=== PATIENT | female | born 1955 | race Caucasian/White ===

== ENCOUNTER 2024-09-14 13:22 | Inpatient (IN) | payer MEDICARE ==
[~2024-09-14] VITALS: Ht 162.6 cm; Wt 44.5 kg
[~2024-09-14 13:22] MED LIST: AMLODIPINE BESY10 MG PO; ANORO ELLIPTA1 EACH INH; ATORVASTATIN CA10 MG PO; BACLOFEN10 MG PO; BUPROPION HCL100 MG PO; HYDROCODON-ACE1 EAC9 PO; LOSARTAN POTAS100 MG PO; ONDANSETRON ODT8 MG PO; OXYBUTYNIN CHLOR5 MG PO; PROVENTIL HFA6.7 GM INH; TRAZODONE HCL100 MG PO; ULTRAM 50MG50 MG PO
[2024-09-14 13:45] VITALS: TEMP 98.5
[2024-09-14 14:26] LABS: BASOPHILS # (AUTO) 0.1 (0.0-0.1); EOSINOPHILS # (AUTO) 0.3 (0.0-0.4); EOSINOPHILS % 5.1 % (0.0-6.0); HEMATOCRIT 34.9 % (34.2-44.1); HEMOGLOBIN 11.1 g/dL (12.0-16.0); LYMPHOCYTES # (AUTO) 1.2 (1.0-3.2); LYMPHOCYTES % 19.9 % (18.0-39.1); MEAN CORPUSCULAR HEMOGLOBIN 30.8 pg (28-32); MEAN CORPUSCULAR HGB CONC 31.8 g/dL (31-35); MEAN CORPUSCULAR VOLUME 96.9 fL (81-99); MONOCYTES # (AUTO) 0.5 (0.2-0.8); MONOCYTES % 8.3 % (4.4-11.3); NEUTROPHILS # (AUTO) 3.9 (2.1-6.9); NEUTROPHILS % 65.5 % (38.7-80.0); PLATELET COUNT 210 x10e3/uL (140-360); RED CELL DISTRIBUTION WIDTH 14.1 % (11.7-14.4); WHITE BLOOD COUNT 5.89 x10e3/uL (4.8-10.8)
[2024-09-14 14:42] LABS: PROTHROMBIN TIME 13.8 seconds (11.9-14.5)
[2024-09-14 14:43] LABS: PARTIAL THROMBOPLASTIN TIME 29.6 seconds (23.8-35.5)
[2024-09-14 14:52] LABS: ALBUMIN 3.5 g/dL (3.5-5.0); ALBUMIN/GLOBULIN RATIO 1.1 (0.8-2.0); ANION GAP 11.9 mmol/L (8-16); BILIRUBIN,TOTAL 0.4 mg/dL (0.2-1.2); CALCIUM 9.4 mg/dL (8.4-10.2); CREATININE, SERUM 0.73 mg/dL (0.57-1.11); POTASSIUM 3.9 mmol/L (3.5-5.1); TOTAL PROTEIN 6.7 g/dL (6.5-8.1)
[2024-09-14] MEDS ORDERED: SODIUM CHLORIDE FLUSH 10 ML SYR INJ PRN (15:30)
[2024-09-14] MEDS ORDERED: ONDANSETRON HCL INJ 2MG/ML 2ML 2 MG/ML VIAL IV PRN (15:30)
[2024-09-14] MEDS: CIPROFLOXACIN 400 MG/D5W 200ML 200 ML IV SCH (16:12)
[2024-09-14 16:17] VITALS: PULSE 69; RESP 18
[2024-09-14] MEDS: HYDROCODONE/APAP 5MG-325MG TAB PO ONE (16:45)
[2024-09-14 17:25] VITALS: BP 174/82; PULSE 67; RESP 17; TEMP 98.5; O2SAT 100
[2024-09-14 18:15] VITALS: BP 174/82; PULSE 67; RESP 17; TEMP 98.5; O2SAT 100
[2024-09-14] MEDS: Vancomycin IV 1 GM in SODIUM CHLORIDE 0.9% 250ML 250 ML IV SCH (18:29)
[2024-09-14] MEDS ORDERED: DOCUSATE SODIUM 100 MG CAP PO PRN (18:30)
[2024-09-14] MEDS ORDERED: ALBUTEROL/IPRATROPIUM 3 ML NEB NEB PRN (18:30)
[2024-09-14] MEDS ORDERED: SIMETHICONE 80 MG CHEW PO PRN (18:30)
[2024-09-14 20:00] VITALS: BP 176/69; PULSE 70; RESP 18; TEMP 98.2; O2SAT 97
[2024-09-14 21:00] VITALS: BP 176/69; PULSE 70; RESP 18; TEMP 98.2; O2SAT 97
[2024-09-14] MEDS: MELATONIN 3 MG TAB PO PRN (22:28)
[2024-09-14] MEDS: ACETAMINOPHEN 325 MG TAB PO PRN (22:28)
[2024-09-14] MEDS ORDERED: TRAZODONE HCL150 MG PO (23:19)
[2024-09-14] MEDS ORDERED: ATORVASTATIN CA40 MG PO (23:19)
[2024-09-14] MEDS ORDERED: PANTOPRAZOLE SO40 M2 PO (23:19)
[2024-09-15] VITALS (7 sets, daily range): BP systolic 132–198; BP diastolic 59–92; PULSE 54–79; RESP 17–19; TEMP 98.1–98.9; O2SAT 96–100
[2024-09-15] MEDS: HYDROCODONE/APAP 10MG-325MG TAB PO PRN (01:05)
[2024-09-15] MEDS: METOPROLOL TARTRATE INJ 1 MG/ML VIAL IV PRN (01:11)
[2024-09-15 06:42] LABS: BASOPHILS # (AUTO) 0.1 (0.0-0.1); BASOPHILS % 1.1 % (0.0-1.0); EOSINOPHILS # (AUTO) 0.4 (0.0-0.4); EOSINOPHILS % 6.6 % (0.0-6.0); HEMATOCRIT 35.5 % (34.2-44.1); HEMOGLOBIN 11.4 g/dL (12.0-16.0); LYMPHOCYTES # (AUTO) 1.3 (1.0-3.2); LYMPHOCYTES % 20.6 % (18.0-39.1); MEAN CORPUSCULAR HEMOGLOBIN 31.4 pg (28-32); MEAN CORPUSCULAR HGB CONC 32.1 g/dL (31-35); MEAN CORPUSCULAR VOLUME 97.8 fL (81-99); MONOCYTES # (AUTO) 0.8 (0.2-0.8); MONOCYTES % 11.6 % (4.4-11.3); NEUTROPHILS # (AUTO) 3.9 (2.1-6.9); NEUTROPHILS % 59.6 % (38.7-80.0); PLATELET COUNT 204 x10e3/uL (140-360); RED BLOOD COUNT 3.63 x10e6/uL (3.6-5.1); WHITE BLOOD COUNT 6.49 x10e3/uL (4.8-10.8)
[2024-09-15 07:04] LABS: ALBUMIN 3.3 g/dL (3.5-5.0); ALBUMIN/GLOBULIN RATIO 1.1 (0.8-2.0); ANION GAP 11.9 mmol/L (8-16); BILIRUBIN,TOTAL 0.5 mg/dL (0.2-1.2); CALCIUM 9.4 mg/dL (8.4-10.2); CREATININE, SERUM 0.68 mg/dL (0.57-1.11); POTASSIUM 3.9 mmol/L (3.5-5.1); TOTAL PROTEIN 6.3 g/dL (6.5-8.1)
[2024-09-15] MEDS: METOPROLOL TARTRATE 25 MG TAB PO SCH (08:30)
[2024-09-15] MEDS ORDERED: NICOTINE 21 MG/EA PATCH TOP PRN (09:00)
[2024-09-15] MEDS ORDERED: HYDROCODONE/APAP 10MG-325MG TAB PO PRN (09:00)
[2024-09-15] MEDS ORDERED: TRAMADOL HCL 50 MG TAB PO PRN (09:00)
[2024-09-15] MEDS ORDERED: BACLOFEN 10 MG TAB PO PRN (09:00)
[2024-09-15] MEDS: ATORVASTATIN 10 MG TAB PO SCH (09:35)
[2024-09-15] MEDS: HYDRALAZINE HCL 25 MG TAB PO SCH (09:35)
[2024-09-15] MEDS: ASPIRIN 325 MG TAB PO ONE (10:17)
[2024-09-15] MEDS: LOSARTAN POTASSIUM 100 MG TAB PO SCH (10:18)
[2024-09-15] MEDS: AMLODIPINE BESYLATE 5 MG TAB PO SCH (10:18)
[2024-09-15] MEDS: HYDRALAZINE HCL 20 MG/ML VIAL IV PRN (14:27)
[2024-09-15] MEDS: ENOXAPARIN SOD INJ 40 MG/0.4 ML SYR SC SCH (17:02)
[2024-09-15] MEDS: TRAZODONE HCL 50 MG TAB PO SCH (19:46)
[2024-09-15] MEDS: BUPROPION HCL 150 MG TABCR PO SCH (19:46)
[2024-09-16] VITALS: BP 118/65; PULSE 77; RESP 17; TEMP 96.5; O2SAT 99
[2024-09-16 04:00] VITALS: BP 101/53; PULSE 110; RESP 17; TEMP 97.2; O2SAT 100
[2024-09-16 05:30] LABS: BASOPHILS # (AUTO) 0.1 (0.0-0.1); BASOPHILS % 0.8 % (0.0-1.0); EOSINOPHILS # (AUTO) 0.3 (0.0-0.4); EOSINOPHILS % 5.5 % (0.0-6.0); HEMATOCRIT 35.3 % (34.2-44.1); HEMOGLOBIN 11.4 g/dL (12.0-16.0); LYMPHOCYTES # (AUTO) 1.1 (1.0-3.2); LYMPHOCYTES % 18.2 % (18.0-39.1); MEAN CORPUSCULAR HEMOGLOBIN 31.8 pg (28-32); MEAN CORPUSCULAR HGB CONC 32.3 g/dL (31-35); MEAN CORPUSCULAR VOLUME 98.6 fL (81-99); MONOCYTES # (AUTO) 0.8 (0.2-0.8); MONOCYTES % 12.3 % (4.4-11.3); NEUTROPHILS # (AUTO) 3.9 (2.1-6.9); NEUTROPHILS % 62.7 % (38.7-80.0); PLATELET COUNT 197 x10e3/uL (140-360); RED BLOOD COUNT 3.58 x10e6/uL (3.6-5.1); RED CELL DISTRIBUTION WIDTH 14.1 % (11.7-14.4); WHITE BLOOD COUNT 6.16 x10e3/uL (4.8-10.8)
[2024-09-16 05:47] LABS: ALBUMIN 3.2 g/dL (3.5-5.0); ALKALINE PHOSPHATASE 67 IU/L (40-150); ANION GAP 12.7 mmol/L (8-16); BILIRUBIN,TOTAL 0.3 mg/dL (0.2-1.2); BLOOD UREA NITROGEN 21 mg/dL (7-26); BUN/CREATININE RATIO 28 (6-25); CALCIUM 9.2 mg/dL (8.4-10.2); CARBON DIOXIDE 25 mmol/L (22-29); CHLORIDE 104 mmol/L (98-107); CHOL/HDL RATIO 3.1 (3.0-3.6); CHOLESTEROL 120 MD/DL (0-199); CREATININE, SERUM 0.75 mg/dL (0.57-1.11); EST GLOMERULAR FILTRATION RATE 86 ML/MIN (>=60); GLUCOSE 122 mg/dL (74-118); HDL CHOLESTEROL 39 MG/DL (40-60); LDL CHOLESTEROL 59 MG/DL (60-130); POTASSIUM 3.7 mmol/L (3.5-5.1); SODIUM 138 mmol/L (136-145); TOTAL PROTEIN 6.3 g/dL (6.5-8.1); TRIGLYCERIDES 109 MG/DL (0-149)
[2024-09-16 05:48] LABS: ALANINE AMINOTRANSFERASE < 6 IU/L (0-55)
[2024-09-16 08:00] VITALS: BP 110/61; PULSE 82; RESP 17; TEMP 98.2; O2SAT 100
[2024-09-16 08:47] VITALS: BP 125/55; PULSE 61; RESP 20; TEMP 98.4; O2SAT 100
[2024-09-16] MEDS: ASPIRIN 81 MG ENTERIC COATED PO SCH (09:23)
[2024-09-16] MEDS: ATORVASTATIN 40 MG TAB PO SCH (09:23)
[2024-09-16] MEDS ORDERED: ATORVASTATIN CA40 MG PO (09:50)
[2024-09-16] MEDS ORDERED: DOXYCYCLINE HY100 MG PO (09:50)
[2024-09-16] MEDS ORDERED: ASPIRIN EC81 MG PO (09:50)
[2024-09-16] MEDS ORDERED: HYDRALAZINE HCL25 MG PO (09:50)
[2024-09-16] MEDS ORDERED: NICODERM CQ1 EAC2 TOP (09:50)
[2024-09-16] MEDS ORDERED: LOPRESSOR25 MG PO (09:50)
[2024-09-16 10:21] LABS: ANION GAP 14.9 mmol/L (8-16); CREATININE, SERUM 0.76 mg/dL (0.57-1.11); POTASSIUM 3.9 mmol/L (3.5-5.1)
[2024-09-16] MEDS ORDERED: ULTRAM 50MG50 MG PO (11:42)
[2024-09-16 12:22] VITALS: BP 154/80; PULSE 66; RESP 18; TEMP 98.8; O2SAT 97
[2024-09-16 12:44] VITALS: PULSE 67; RESP 18; O2SAT 96
== END 2024-09-16 12:40 | disposition home or self-care (01) | DRG 300 ==
LOC: ER 13:54 → ERHOLD 15:34 → MED/SURG3 17:23
PROVIDERS: ADMIT Internal Medicine; ATTEND Internal Medicine
DX: I70.263 Atherosclerosis of native arteries of extremities with gangrene, bilateral legs (principal); G61.81 Chronic inflammatory demyelinating polyneuritis; Z68.1 Body mass index [BMI] 19.9 or less, adult; L03.032 Cellulitis of left toe; L97.529 Non-pressure chronic ulcer of other part of left foot with unspecified severity; R63.6 Underweight; I10 Essential (primary) hypertension; J44.9 Chronic obstructive pulmonary disease, unspecified; E78.00 Pure hypercholesterolemia, unspecified; Z59.41 Food insecurity; Z88.0 Allergy status to penicillin; Z88.1 Allergy status to other antibiotic agents; Z88.2 Allergy status to sulfonamides; F17.210 Nicotine dependence, cigarettes, uncomplicated
CPT/HCPCS: 36415; 80048; 80053; 80061; 80202; 84134; 84443; 84484; 85025; 85610; 85730; 87071; 87205; 93005; 93306; 93925; 94799; 99284; J0360; J1650; J7050